=== PATIENT | female | born 1980 | race Caucasian/White ===

== ENCOUNTER 2018-05-19 08:00 | Inpatient (IN) | payer OTHER ==
[~2018-05-19] VITALS: Ht 155 cm; Wt 104.3 kg
[2018-05-19] MEDS ORDERED: PREN1TAB80 PO (08:16)
[2018-05-19] MEDS ORDERED: RINGERS SOLUTION,LACTATED 1,000 ML IV PRN (08:43)
[2018-05-19] MEDS ORDERED: CITRIC ACID/SODIUM CITRATE 30 ML SOLUTION UDCUP PO PRN (08:45)
[2018-05-19] MEDS ORDERED: METOCLOPRAMIDE HCL 5 MG/ML 2 ML VIAL IVP PRN (08:45)
[2018-05-19] MEDS ORDERED: FentaNYL CITRATE-PF 100 MCG/2 ML VIAL IVP PRN (08:45)
[2018-05-19 08:54] VITALS: BP 137/83
[2018-05-19] MEDS ORDERED: OXYTOCIN 30 UNITS/LACT RINGERS 500 ML IV ONE (09:56)
[2018-05-19] MEDS ORDERED: METHYLERGONOVINE MALEATE 0.2 MG/ML VIAL IM PRN (10:00)
[2018-05-19] MEDS ORDERED: LIDOCAINE/PF 1% 30 ML VIAL INJ PRN (10:00)
[2018-05-19] MEDS: RINGERS SOLUTION,LACTATED 1,000 ML IV SCH ×3 (10:01→20:00)
[2018-05-19 10:39] LABS: BASOPHILS % (AUTO) 0.7 % (0.0-2.0); EOSINOPHILS % (AUTO) 0.4 % (1.0-6.0); HEMATOCRIT 41.2 % (36-46); LYMPHOCYTES # (AUTO) 1.4 K/uL (1.0-4.8); MEAN CORPUSCULAR HEMOGLOBIN 30.4 pg (26.0-34.0); MEAN CORPUSCULAR VOLUME 89 fL (80-100); MONOCYTES # (AUTO) 0.7 K/uL (0.1-1.0); MONOCYTES % (AUTO) 7.6 % (2.0-9.0); NEUTROPHILS # (AUTO) 7.3 K/uL (1.8-7.7); NEUTROPHILS % (AUTO) 76.3 % (40.0-70.0); PLATELET COUNT (AUTO)-OB 280 K/uL (150-450); RED BLOOD CELL COUNT(AUTO) 4.61 MIL/uL (4.00-5.20); RED CELL DISTRIBUTION WIDTH 14.6 % (11.5-14.5)
[2018-05-19] MEDS ORDERED: AMPICILLIN SODIUM 2 GM/NS 100 ML IV ONE (11:45)
[2018-05-19] MEDS ORDERED: MISOPROSTOL 25 MCG TABLET VG SCH (12:00)
[2018-05-19] MEDS: AMPICILLIN SODIUM 1 GM/NS 50 ML IV SCH ×2 (16:50→20:19)
[2018-05-19] MEDS ORDERED: ROPIVACAINE HCL/PF 0.2% 100 ML ED ONE (17:06)
[2018-05-19] MEDS ORDERED: DiphenhydrAMINE HCL 50 MG/ML VIAL IVP PRN (17:45)
[2018-05-19] MEDS ORDERED: ROPIVACAINE HCL/PF 0.2% 100 ML ED PRN (17:45)
[2018-05-19] MEDS ORDERED: ONDANSETRON HCL 4 MG/2 ML VIAL IVP PRN (17:45)
[2018-05-19] MEDS ORDERED: OXYTOCIN 30 UNITS/LACT RINGERS 500 ML IV PRN (19:42)
[2018-05-19] MEDS ORDERED: OXYGEN THERAPY IH SCH (20:00)
[2018-05-20] MEDS: RINGERS SOLUTION,LACTATED 1,000 ML IV SCH ×3 (01:00→17:20)
[2018-05-20] MEDS: AMPICILLIN SODIUM 1 GM/NS 50 ML IV SCH ×3 (01:00→08:24)
[2018-05-20] MEDS ORDERED: MORPHINE SULFATE/PF 0.5 MG/ML 10 ML AMP ONE ×2 (13:48→15:55)
[2018-05-20] MEDS ORDERED: RINGERS SOLUTION,LACTATED 1,000 ML IV ONE (13:49)
[2018-05-20] MEDS ORDERED: SODIUM CHLORIDE 0.9% 1,000 ML IV ONE (13:49)
[2018-05-20] MEDS ORDERED: LIDOCAINE/PF 2% 5 ML VIAL ONE (13:49)
[2018-05-20] MEDS ORDERED: GENTAMICIN 80 MG/NACL ISO-OSM 100 ML IV ONE (14:31)
[2018-05-20] MEDS ORDERED: NALOXONE HCL 0.4 MG/ML VIAL IVP PRN (15:45)
[2018-05-20] MEDS ORDERED: DiphenhydrAMINE HCL 50 MG/ML VIAL IVP PRN (15:45)
[2018-05-20] MEDS ORDERED: FentaNYL CITRATE-PF 100 MCG/2 ML VIAL IVP PRN ×2 (15:45)
[2018-05-20] MEDS ORDERED: NALBUPHINE HCL 10 MG/ML VIAL IVP PRN ×2 (15:45)
[2018-05-20] MEDS ORDERED: ONDANSETRON HCL 4 MG/2 ML VIAL IVP PRN (15:45)
[2018-05-20] MEDS ORDERED: MORPHINE SULFATE 10 MG/ML SYRINGE IVP PRN (15:45)
[2018-05-20] MEDS ORDERED: MEPERIDINE-PF 25 MG/ML VIAL IVP PRN (15:45)
[2018-05-20] MEDS: HYDROmorphone 2 MG/ML SYRINGE IVP PRN ×2 (16:09→16:36)
[2018-05-20] MEDS ORDERED: OXYTOCIN 30 UNITS/LACT RINGERS 500 ML IV ONE (16:40)
[2018-05-20] MEDS ORDERED: OxyCODONE HCL/ACETAMINOPHEN 5-325 MG TABLET PO PRN ×2 (16:45)
[2018-05-20] MEDS ORDERED: LANOLIN 7 GM OINTMENT TP PRN (16:45)
[2018-05-20] MEDS ORDERED: OXYGEN THERAPY IH SCH ×3 (20:00)
[2018-05-20] MEDS: KETOROLAC TROMETHAMINE 30 MG/ML VIAL IVP SCH (22:58)
[2018-05-20] MEDS: ACETAMINOPHEN 1000 MG/ISO-OSM 100 ML IV SCH (22:58)
[2018-05-21] MEDS: RINGERS SOLUTION,LACTATED 1,000 ML IV SCH (02:06)
[2018-05-21] MEDS ORDERED: KETOROLAC TROMETHAMINE 60 MG/2 ML VIAL IM ONE (05:55)
[2018-05-21] MEDS ORDERED: LIDOCAINE/PF 2% 5 ML VIAL IM ONE (05:55)
[2018-05-21] MEDS ORDERED: MORPHINE SULFATE 4 MG/ML SYRINGE IVP ONE (05:55)
[2018-05-21] MEDS ORDERED: MIDAZOLAM HCL 2 MG/2 ML VIAL IVP ONE (05:55)
[2018-05-21] MEDS ORDERED: PROPOFOL 1% 20 ML VIAL IVP ONE (05:55)
[2018-05-21] MEDS ORDERED: KETAMINE HCL 50 MG/ML 10 ML VIAL IVP ONE (05:55)
[2018-05-21] MEDS ORDERED: FentaNYL CITRATE-PF 100 MCG/2 ML VIAL IVP ONE (05:55)
[2018-05-21] MEDS: KETOROLAC TROMETHAMINE 30 MG/ML VIAL IVP SCH (05:57)
[2018-05-21 06:04] LABS: BASOPHILS % (AUTO) 0.3 % (0.0-2.0); EOSINOPHILS % (AUTO) 0.6 % (1.0-6.0); HEMATOCRIT 32.3 % (36-46); LYMPHOCYTES # (AUTO) 1.4 K/uL (1.0-4.8); LYMPHOCYTES % (AUTO) 11.9 % (22.0-44.0); MEAN CORPUSCULAR HEMOGLOBIN 30.4 pg (26.0-34.0); MEAN CORPUSCULAR HGB CONC 33.9 G/dL (31.0-37.0); MEAN CORPUSCULAR VOLUME 90 fL (80-100); MONOCYTES # (AUTO) 1.3 K/uL (0.1-1.0); NEUTROPHILS # (AUTO) 8.7 K/uL (1.8-7.7); NEUTROPHILS % (AUTO) 76.2 % (40.0-70.0); PLATELET COUNT (AUTO)-OB 208 K/uL (150-450); RED BLOOD CELL COUNT(AUTO) 3.61 MIL/uL (4.00-5.20); RED CELL DISTRIBUTION WIDTH 14.5 % (11.5-14.5)
[2018-05-21] MEDS: ACETAMINOPHEN 1000 MG/ISO-OSM 100 ML IV SCH (06:57)
[2018-05-21] MEDS: MAGNESIUM HYDROXIDE SUSPENSION 30 ML UDCUP PO SCH ×2 (08:58→21:00)
[2018-05-21] MEDS: IBUPROFEN 800 MG TABLET PO PRN ×2 (15:05→21:10)
[2018-05-22] MEDS: IBUPROFEN 800 MG TABLET PO PRN ×2 (04:08→15:05)
[2018-05-22 11:15] LABS: BASOPHILS % (AUTO) 0.3 % (0.0-2.0); EOSINOPHILS % (AUTO) 1.5 % (1.0-6.0); HEMATOCRIT 30.6 % (36-46); HEMOGLOBIN 10.2 g/dL (12.0-16.0); LYMPHOCYTES # (AUTO) 1.3 K/uL (1.0-4.8); LYMPHOCYTES % (AUTO) 11.8 % (22.0-44.0); MEAN CORPUSCULAR HEMOGLOBIN 29.7 pg (26.0-34.0); MEAN CORPUSCULAR HGB CONC 33.4 G/dL (31.0-37.0); MEAN CORPUSCULAR VOLUME 89 fL (80-100); MONOCYTES % (AUTO) 9.5 % (2.0-9.0); NEUTROPHILS # (AUTO) 8.3 K/uL (1.8-7.7); NEUTROPHILS % (AUTO) 76.9 % (40.0-70.0); PLATELET COUNT (AUTO)-OB 261 K/uL (150-450); RED BLOOD CELL COUNT(AUTO) 3.43 MIL/uL (4.00-5.20); RED CELL DISTRIBUTION WIDTH 14.6 % (11.5-14.5)
[2018-05-23] MEDS: IBUPROFEN 800 MG TABLET PO PRN (03:06)
[2018-05-23] MEDS ORDERED: IBUP-2070 PO (08:48)
[2018-05-23] MEDS ORDERED: DSS100 PO (08:49)
[2018-05-23] MEDS ORDERED: FERR-89 PO (08:51)
[2018-05-23] MEDS ORDERED: PERCT PO (08:52)
== END 2018-05-23 14:00 | disposition home or self-care (01) | DRG 788 ==
LOC: 4S 08:00 → OBSVTOIN 08:00 → 4S 05-21 17:12
PROVIDERS: ADMIT Obstetrics & Gynecology; ATTEND Obstetrics & Gynecology
PROC: 10D00Z1 Extraction of Products of Conception, Low, Open Approach (ICD-10-PCS; principal; 2018-05-20)
DX: O62.2 Other uterine inertia (principal); Z3A.39 39 weeks gestation of pregnancy; Z37.0 Single live birth
CPT/HCPCS: 86850; 86900; 86901; 86920; 87081; 90686; J0131; J0290; J0690; J1170; J1580; J1885; J2250; J2270; J2274; J2590; J2704; J2765; J2795; J3010; J3490; J7030; J7120